=== PATIENT | female | born 1985 | race Caucasian/White ===

== ENCOUNTER 2021-08-21 10:01 | Emergency (ER) | payer OTHER ==
[~2021-08-21] VITALS: Ht 170.2 cm; Wt 36.7 kg
[~2021-08-21 10:01] MED LIST: GILTUSS LIQUID237 M1 PO; TESSALON200 MG PO; ZITHROMAX200 MG/5 M PO
== END 2021-08-21 14:44 | disposition home or self-care (01) ==
LOC: ER 10:01
DX: H66.91 Otitis media, unspecified, right ear (principal); Z03.818 Encounter for observation for suspected exposure to other biological agents ruled out